=== PATIENT | female | born 1995 | race African-American/Black ===

== ENCOUNTER → 2018-08-15 18:22 | Outpatient (CLI) | payer MEDICAID ==
[2018-08-18 18:07] LABS: CHLAMYDIA TRACHOMATIS, NAA Negative (Negative)
== END | disposition home or self-care (01) ==
LOC: D.LABREF 18:22
DX: N89.8 Other specified noninflammatory disorders of vagina (principal)

== ENCOUNTER 2019-01-27 13:08 | Emergency (ER) | payer MEDICAID ==
[~2019-01-27] VITALS: Ht 160 cm; Wt 84.1 kg
[2019-01-27 13:19] VITALS: Ht 160 cm; Wt 84.1 kg
[2019-01-27] MEDS ORDERED: ULTRAM50 MG PO (15:23)
[2019-01-27] MEDS ORDERED: DIFLUCAN150 MG PO (15:23)
[2019-01-27] MEDS ORDERED: PENICILLIN V P500 MG PO (15:23)
[2019-01-27 16:58] VITALS: BP 112/80
== END 2019-01-27 16:58 | disposition home or self-care (01) ==
LOC: D.ER 13:08
DX: K04.7 Periapical abscess without sinus (principal)